=== PATIENT | female | born 1970 | race Two or more races ===

== ENCOUNTER 2020-07-11 10:03 | Emergency (ER) | payer OTHER ==
[2020-07-11 10:10] VITALS: BP 169/91; PULSE 91; TEMP 98.1; BMI 35.3
[2020-07-11] MEDS ORDERED: KETOROLAC TROMETHAMINE 30 MG/1 ML VIAL IM ONE (11:44)
[2020-07-11] MEDS ORDERED: KETOROLAC TROMETHAMINE 30 MG/1 ML VIAL ONE (11:53)
[2020-07-11 12:47] LABS: URIC ACID 3.7 mg/dL (2.6-7.2)
[2020-07-13 18:07] LABS: BABESIA MICROTI ANTIBODY IGG <1:10 (Neg:<1:10); BABESIA MICROTI ANTIBODY IGM <1:10 (Neg:<1:10)
[2020-07-15 15:10] LABS: E.chaff HME IgG Negative (Neg:<1:64)
== END 2020-07-11 13:22 | disposition home or self-care (01) ==
LOC: JER 10:03
PROC: 3E0233Z Introduction of Anti-inflammatory into Muscle, Percutaneous Approach (ICD-10-PCS; principal; 2020-07-11)
DX: M00.89 Polyarthritis due to other bacteria (principal)
CPT/HCPCS: 36415; 73130-TC-LT-FY; 73130-TC-RT-FY; 84550; 86140; 86431; 86618; 86666; 86753; 87491; 87591; 99284-25

== ENCOUNTER 2021-04-30 17:11 | Inpatient (IN) | payer OTHER ==
[2021-04-30] MEDS ORDERED: IBUPROFEN 600 MG TABLET (FP) PO ONE ×2 (17:47→17:49)
[2021-04-30] MEDS ORDERED: ACETAMINOPHEN 500 MG TABLET (FP) PO ONE (17:47)
[2021-04-30] MEDS ORDERED: ACETAMINOPHEN 500 MG TABLET (FP) ONE (17:49)
[2021-04-30] MEDS: ALBUTEROL SO4 2.5/IPRATROPIUM 0.5 INH SOL 3 ML VIAL.NEB. NEB SCH ×4 (18:15→19:16)
[2021-04-30] MEDS ORDERED: ALBUTEROL SO4 2.5/IPRATROPIUM 0.5 INH SOL 3 ML VIAL.NEB. NEB ONE (18:15)
[2021-04-30 19:29] LABS: BASO % 1.1 % (0-2.0); EOS % 4.4 % (0-4.5); HEMATOCRIT 39.4 % (32.4-45.2); MCH 27.7 pg (25.7-33.7); MEAN CELL VOLUME 83.8 fl (80-96); MEAN PLT VOLUME 9.8 fl (7.5-11.1); MONO % 6.9 % (3.8-10.2); NEUT % 57.6 % (42.8-82.8); PLATELET COUNT 284 10^3/uL (134-434); RDW 17.7 % (11.6-15.6); WHITE BLOOD COUNT 11.6 K/mm3 (4.0-10.0)
[2021-04-30 19:52] LABS: ALBUMIN 3.7 g/dl (3.4-5.0); BLOOD UREA NITROGEN 20.4 mg/dL (7-18); CALCIUM 9.1 mg/dL (8.5-10.1)
[2021-04-30 19:53] LABS: BILIRUBIN,DIRECT 0.1 mg/dL (0.0-0.2)
[2021-04-30 19:55] LABS: CREATININE 0.7 mg/dL (0.55-1.3)
[2021-04-30 19:57] LABS: BILIRUBIN,TOTAL 0.4 mg/dL (0.2-1); TOT PROT 8.4 g/dl (6.4-8.2)
[2021-04-30 20:00] LABS: N-TERMINAL BNP 62.4 pg/ml (5-125)
[2021-04-30] MEDS ORDERED: CEFTRIAXONE 1,000 MG in DEXTROSE 5%-WATER - 50 ML IVPB ONE (20:35)
[2021-04-30] MEDS ORDERED: AZITHROMYCIN IVPB 500 MG in DEXTROSE 5%-WATER - 250 ML IVPB ONE (20:36)
[2021-04-30] MEDS ORDERED: CEFTRIAXONE 1 GM/50 ML BAG ONE (20:52)
[2021-04-30] MEDS ORDERED: AZITHROMYCIN IVPB 500 MG/250 ML BAG IVPB ONE (20:52)
[2021-04-30] MEDS ORDERED: BUDESONIDE/FORMETEROL FUMARATE 80/4.5 mcg INHALER IH SCH (22:15)
[2021-04-30] MEDS ORDERED: ACETAMINOPHEN 325 MG TABLET (FP) PO SCH (22:15)
[2021-04-30 22:46] LABS: PH,URINE 5.5 (5.0-8.0); URINE APPEARANCE CLEAR; URINE BILIRUBIN NEGATIVE (NEGATIVE); URINE COLOR YELLOW; URINE GLUCOSE (UA) NEGATIVE (NEGATIVE); URINE KETONE NEGATIVE (NEGATIVE); URINE LEUK ESTERASE NEGATIVE (NEGATIVE); URINE NITRITE NEGATIVE (NEGATIVE); URINE PROTEIN NEGATIVE (NEGATIVE); URINE UROBILINOGEN 0.2 mg/dL (0.2-1.0)
[2021-04-30 23:45] VITALS: BMI 34.7
[2021-05-01] MEDS: ACETAMINOPHEN 325 MG TABLET (FP) PO PRN (03:52)
[2021-05-01] MEDS: ALBUTEROL SO4 2.5/IPRATROPIUM 0.5 INH SOL 3 ML VIAL.NEB. NEB SCH ×3 (07:42→19:42)
[2021-05-01 08:00] LABS: BASO % 0.7 % (0-2.0); EOS % 8.6 % (0-4.5); HEMATOCRIT 35.5 % (32.4-45.2); HEMOGLOBIN 11.7 GM/dL (10.7-15.3); LYMPH % 19.1 % (8-40); MCH 27.6 pg (25.7-33.7); MCHC 32.9 g/dl (32.0-36.0); MEAN CELL VOLUME 83.9 fl (80-96); MEAN PLT VOLUME 9.8 fl (7.5-11.1); MONO % 6.3 % (3.8-10.2); NEUT % 65.3 % (42.8-82.8); PLATELET COUNT 264 10^3/uL (134-434); RBC 4.23 M/mm3 (3.60-5.2); RDW 17.7 % (11.6-15.6)
[2021-05-01 08:28] LABS: BLOOD UREA NITROGEN 18.1 mg/dL (7-18)
[2021-05-01 08:30] LABS: CALCIUM 8.4 mg/dL (8.5-10.1)
[2021-05-01 08:34] LABS: CREATININE 0.5 mg/dL (0.55-1.3); PHOSPHOROUS 5.4 mg/dL (2.5-4.9)
[2021-05-01 08:35] LABS: BILIRUBIN,TOTAL 0.4 mg/dL (0.2-1); TOT PROT 7.3 g/dl (6.4-8.2)
[2021-05-01] MEDS ORDERED: cefTRIAXone SODIUM 1 GM VIAL ONE (08:40)
[2021-05-01] MEDS ORDERED: DEXTROSE 5%-WATER - 50 ML IVPB ONE (08:40)
[2021-05-01] MEDS: CEFTRIAXONE 1 GM in DEXTROSE 5%-WATER - 50 ML IVPB SCH (09:36)
[2021-05-01] MEDS: AZITHROMYCIN 250 MG TABLET PO SCH (09:36)
[2021-05-01] MEDS: ENOXAPARIN NA (PORCINE) 40 MG/0.4 ML DISP.SYRIN SQ SCH (09:36)
[2021-05-01] MEDS ORDERED: predniSONE 2.5 MG TABLET PO SCH (10:00)
[2021-05-01] MEDS: HYDROCHLOROTHIAZIDE 25 MG TABLET (FP) PO SCH (10:10)
[2021-05-01] MEDS: LISINOPRIL 20 MG TABLET PO SCH (10:10)
[2021-05-01] MEDS ORDERED: predniSONE 5 MG TABLET (UD) PO SCH ×2 (10:15)
[2021-05-01] MEDS: BUDESONIDE/FORMETEROL FUMARATE 80/4.5 mcg INHALER IH SCH ×2 (11:11→22:08)
[2021-05-01] MEDS: NAPROXEN 500 MG TABLET PO SCH ×2 (11:11→22:08)
[2021-05-01] MEDS: methylPREDNISolone NA SUCC 40 MG/1 ML VIAL IVPUSH SCH (17:27)
[2021-05-01] MEDS ORDERED: PT OWN MED DRAWER 7, Y5N ONE (18:46)
[2021-05-01] MEDS ORDERED: MONTELUKAST NA 5 MG TAB.CHEW PO SCH (22:00)
[2021-05-01] MEDS: MONTELUKAST NA 10 MG TABLET PO SCH (22:08)
[2021-05-02] MEDS: methylPREDNISolone NA SUCC 40 MG/1 ML VIAL IVPUSH SCH ×3 (03:00→18:24)
[2021-05-02 07:30] LABS: HEMATOCRIT 37.7 % (32.4-45.2); HEMOGLOBIN 12.6 GM/dL (10.7-15.3); MCH 27.6 pg (25.7-33.7); MCHC 33.3 g/dl (32.0-36.0); MEAN PLT VOLUME 9.8 fl (7.5-11.1); PLATELET COUNT 302 10^3/uL (134-434); RBC 4.55 M/mm3 (3.60-5.2); RDW 17.9 % (11.6-15.6); WHITE BLOOD COUNT 8.9 K/mm3 (4.0-10.0)
[2021-05-02] MEDS: ALBUTEROL SO4 2.5/IPRATROPIUM 0.5 INH SOL 3 ML VIAL.NEB. NEB SCH ×3 (07:36→19:56)
[2021-05-02 07:50] LABS: CALCIUM 8.9 mg/dL (8.5-10.1)
[2021-05-02 07:51] LABS: ALBUMIN 3.4 g/dl (3.4-5.0); BLOOD UREA NITROGEN 18.1 mg/dL (7-18)
[2021-05-02 07:54] LABS: BILIRUBIN,TOTAL 0.4 mg/dL (0.2-1); CREATININE 0.6 mg/dL (0.55-1.3)
[2021-05-02] MEDS ORDERED: cefTRIAXone SODIUM 1 GM VIAL ONE (09:23)
[2021-05-02] MEDS ORDERED: DEXTROSE 5%-WATER - 50 ML IVPB ONE (09:23)
[2021-05-02] MEDS ORDERED: PT OWN MED DRAWER 7, Y5N ONE (09:23)
[2021-05-02] MEDS: AZITHROMYCIN 250 MG TABLET PO SCH (09:32)
[2021-05-02] MEDS: NAPROXEN 500 MG TABLET PO SCH ×2 (09:32→22:38)
[2021-05-02] MEDS: LISINOPRIL 20 MG TABLET PO SCH (09:32)
[2021-05-02] MEDS: ENOXAPARIN NA (PORCINE) 40 MG/0.4 ML DISP.SYRIN SQ SCH (09:32)
[2021-05-02] MEDS: HYDROCHLOROTHIAZIDE 25 MG TABLET (FP) PO SCH (09:32)
[2021-05-02] MEDS: CEFTRIAXONE 1 GM in DEXTROSE 5%-WATER - 50 ML IVPB SCH (09:33)
[2021-05-02] MEDS: BUDESONIDE/FORMETEROL FUMARATE 80/4.5 mcg INHALER IH SCH ×2 (09:33→21:42)
[2021-05-02] MEDS: MONTELUKAST NA 10 MG TABLET PO SCH (21:30)
[2021-05-03] MEDS: methylPREDNISolone NA SUCC 40 MG/1 ML VIAL IVPUSH SCH ×2 (01:44→10:54)
[2021-05-03] MEDS: ALBUTEROL SO4 2.5/IPRATROPIUM 0.5 INH SOL 3 ML VIAL.NEB. NEB SCH ×2 (07:50→14:45)
[2021-05-03 08:19] LABS: HEMATOCRIT 36.5 % (32.4-45.2); HEMOGLOBIN 12.1 GM/dL (10.7-15.3); MCHC 33.2 g/dl (32.0-36.0); MEAN CELL VOLUME 84.1 fl (80-96); PLATELET COUNT 305 10^3/uL (134-434); RBC 4.33 M/mm3 (3.60-5.2); RDW 17.7 % (11.6-15.6); WHITE BLOOD COUNT 15.3 K/mm3 (4.0-10.0)
[2021-05-03 08:45] LABS: ALBUMIN 3.2 g/dl (3.4-5.0); BLOOD UREA NITROGEN 24.8 mg/dL (7-18); CALCIUM 8.8 mg/dL (8.5-10.1)
[2021-05-03 08:48] LABS: CREATININE 0.6 mg/dL (0.55-1.3)
[2021-05-03 08:49] LABS: BILIRUBIN,TOTAL 0.4 mg/dL (0.2-1); TOT PROT 7.7 g/dl (6.4-8.2)
[2021-05-03] MEDS ORDERED: cefTRIAXone SODIUM 1 GM VIAL ONE (10:51)
[2021-05-03] MEDS ORDERED: PT OWN MED DRAWER 7, Y5N ONE (10:51)
[2021-05-03] MEDS ORDERED: DEXTROSE 5%-WATER - 50 ML IVPB ONE (10:51)
[2021-05-03] MEDS: HYDROCHLOROTHIAZIDE 25 MG TABLET (FP) PO SCH (10:52)
[2021-05-03] MEDS: AZITHROMYCIN 250 MG TABLET PO SCH (10:53)
[2021-05-03] MEDS: NAPROXEN 500 MG TABLET PO SCH (10:53)
[2021-05-03] MEDS: LISINOPRIL 20 MG TABLET PO SCH (10:53)
[2021-05-03] MEDS: ENOXAPARIN NA (PORCINE) 40 MG/0.4 ML DISP.SYRIN SQ SCH (10:53)
[2021-05-03] MEDS: CEFTRIAXONE 1 GM in DEXTROSE 5%-WATER - 50 ML IVPB SCH (10:53)
[2021-05-03] MEDS: BUDESONIDE/FORMETEROL FUMARATE 80/4.5 mcg INHALER IH SCH (10:55)
[2021-05-03] MEDS: ACETAMINOPHEN 325 MG TABLET (FP) PO PRN (10:55)
[2021-05-03 13:15] VITALS: BP 144/79; PULSE 104; TEMP 97.7
== END 2021-05-03 18:46 | disposition home or self-care (01) | DRG 139 ==
LOC: JER 17:11 → JERBED 21:06 → J8W 22:53
PROVIDERS: ADMIT Internal Medicine; ATTEND Internal Medicine
DX: J18.9 Pneumonia, unspecified organism (principal); M05.10 Rheumatoid lung disease with rheumatoid arthritis of unspecified site; J45.901 Unspecified asthma with (acute) exacerbation; I10 Essential (primary) hypertension; J02.9 Acute pharyngitis, unspecified; D72.829 Elevated white blood cell count, unspecified; E66.9 Obesity, unspecified; Z68.34 Body mass index [BMI] 34.0-34.9, adult; R09.02 Hypoxemia; I51.7 Cardiomegaly
CPT/HCPCS: 36415; 71046-TC-FY; 71250-TC; 71275-TC; 80053; 81003; 82248; 82550; 82728; 83036; 83615; 83735; 83880; 84100; 84484; 85025; 85027; 85379; 86140; 87040; 87070; 87205; 87880; 87899; 93005; 93010; 93970-TC; 94640; 97116-GP; 97161-GP; 99285-25; C9803; Q9967; U0003; U0005

== ENCOUNTER 2021-09-27 07:41 | Day surgery (SDC) | payer OTHER ==
[2021-09-27] MEDS ORDERED: diphenhydrAMINE HCL 25 MG CAPSULE (FP) PO ONE (08:30)
[2021-09-27] MEDS ORDERED: methylPREDNISolone NA SUCC 125 MG/2 ML VIAL IVPUSH ONE (08:30)
[2021-09-27] MEDS ORDERED: ACETAMINOPHEN 500 MG TABLET (FP) PO ONE (08:30)
[2021-09-27] MEDS ORDERED: RITUXIMAB-ABBS 1,000 MG in DEXTROSE 5%-WATER - 400 ML IVPB ONE (09:00)
[2021-09-27 09:03] LABS: BASO % 0.5 % (0-2.0); EOS % 1.6 % (0-4.5); HEMATOCRIT 41.1 % (32.4-45.2); HEMOGLOBIN 13.1 GM/dL (10.7-15.3); LYMPH % 12.2 % (8-40); MCH 26.1 pg (25.7-33.7); MCHC 31.8 g/dl (32.0-36.0); MEAN CELL VOLUME 82.1 fl (80-96); MEAN PLT VOLUME 10.1 fl (7.5-11.1); MONO % 2.5 % (3.8-10.2); NEUT % 83.2 % (42.8-82.8); PLATELET COUNT 244 10^3/uL (134-434); RBC 5.01 M/mm3 (3.60-5.2); RDW 16.9 % (11.6-15.6)
[2021-09-27 09:17] LABS: ALBUMIN 3.4 g/dl (3.4-5.0); BLOOD UREA NITROGEN 20.1 mg/dL (7-18)
[2021-09-27 09:20] LABS: CREATININE 0.9 mg/dL (0.55-1.3)
[2021-09-27 09:21] LABS: BILIRUBIN,TOTAL 0.4 mg/dL (0.2-1); TOT PROT 7.5 g/dl (6.4-8.2)
[2021-09-27 17:43] VITALS: PULSE 85
[2021-09-27 17:57] VITALS: BP 137/77; TEMP 98
== END 2021-09-27 14:45 | disposition home or self-care (01) ==
LOC: JCHEMO 07:41
PROVIDERS: ATTEND Internal Medicine Rheumatology
DX: M06.9 Rheumatoid arthritis, unspecified (principal); J84.9 Interstitial pulmonary disease, unspecified
CPT/HCPCS: 36415; 80053; 85025; 96375; 96413; 96415; Q5115

== ENCOUNTER 2021-10-11 08:10 | Day surgery (SDC) | payer OTHER ==
[2021-10-11] MEDS ORDERED: ACETAMINOPHEN 500 MG TABLET (FP) PO ONE (10:00)
[2021-10-11] MEDS ORDERED: methylPREDNISolone NA SUCC 125 MG/2 ML VIAL IVPUSH ONE (10:00)
[2021-10-11] MEDS ORDERED: diphenhydrAMINE HCL 25 MG CAPSULE (FP) PO ONE (10:00)
[2021-10-11] MEDS ORDERED: RITUXIMAB-ABBS 1,000 MG in DEXTROSE 5%-WATER - 400 ML IVPB ONE (10:30)
[2021-10-11 16:51] VITALS: TEMP 98.2
[2021-10-11 16:57] VITALS: BP 102/60; PULSE 94
== END 2021-10-11 14:45 | disposition home or self-care (01) ==
LOC: JINFUSION 08:10 → J7W 08:11 → JINFUSION 14:45
PROVIDERS: ATTEND Internal Medicine Rheumatology
DX: M06.9 Rheumatoid arthritis, unspecified (principal); J84.9 Interstitial pulmonary disease, unspecified
CPT/HCPCS: 96367; 96413; 96415; Q5115

== ENCOUNTER 2021-10-14 09:31 | Inpatient (IN) | payer OTHER ==
[2021-10-14] MEDS ORDERED: SODIUM CHLORIDE 1,000 ML IV STA (10:54)
[2021-10-14 11:13] LABS: HEMATOCRIT 41.6 % (32.4-45.2); HEMOGLOBIN 13.8 GM/dL (10.7-15.3); MCH 27.4 pg (25.7-33.7); MCHC 33.1 g/dl (32.0-36.0); MEAN CELL VOLUME 82.7 fl (80-96); MEAN PLT VOLUME 9.7 fl (7.5-11.1); PLATELET COUNT 236 10^3/uL (134-434); RBC 5.03 M/mm3 (3.60-5.2); WHITE BLOOD COUNT 9.9 K/mm3 (4.0-10.0)
[2021-10-14 11:33] LABS: CHLORIDE 104 mmol/L (98-107); SODIUM 138 mmol/L (136-145)
[2021-10-14 11:35] LABS: CALCIUM 9.4 mg/dL (8.5-10.1)
[2021-10-14 11:36] LABS: ALBUMIN 3.6 g/dl (3.4-5.0); ANION GAP 6 MMOL/L (8-16); CO2 29 mmol/L (21-32); GLUCOSE,RANDOM 164 mg/dL (74-106)
[2021-10-14 11:39] LABS: CREATININE 0.7 mg/dL (0.55-1.3); SGOT/AST 32 U/L (15-37); SGPT/ALT 20 U/L (13-61)
[2021-10-14 11:40] LABS: BILIRUBIN,TOTAL 0.4 mg/dL (0.2-1); TOT PROT 7.8 g/dl (6.4-8.2)
[2021-10-14 11:42] LABS: ALK PHOS 33 U/L (45-117)
[2021-10-14 12:54] LABS: ANISOCYTOSIS 0; MACROCYTOSIS 0; PLATELET ESTIMATE NORMAL
[2021-10-14] MEDS ORDERED: CEFTRIAXONE 1 GM in DEXTROSE 5%-WATER - 50 ML IVPB ONE (13:37)
[2021-10-14] MEDS ORDERED: AZITHROMYCIN IVPB 500 MG in DEXTROSE 5%-WATER - 250 ML IVPB ONE (13:39)
[2021-10-14] MEDS ORDERED: CEFTRIAXONE 1 GM/50 ML BAG ONE (13:55)
[2021-10-14] MEDS ORDERED: AZITHROMYCIN IVPB 500 MG/250 ML BAG IVPB ONE (13:56)
[2021-10-14] MEDS ORDERED: methylPREDNISolone NA SUCC 40 MG/1 ML VIAL IVPUSH SCH (16:43)
[2021-10-14] MEDS ORDERED: ALBUTEROL SO4 HFA INHALER IH PRN (16:44)
[2021-10-14] MEDS ORDERED: SULFASALAZINE 500 MG PO SCH (22:00)
[2021-10-14] MEDS: BUDESONIDE/FORMETEROL FUMARATE 80/4.5 mcg INHALER IH SCH (22:27)
[2021-10-14 23:47] VITALS: BMI 36.1
[2021-10-15] MEDS ORDERED: NAPROXEN 500 MG TABLET PO ONE (06:14)
[2021-10-15 08:54] LABS: BASO % 0.7 % (0-2.0); EOS % 10.8 % (0-4.5); HEMOGLOBIN 12.5 GM/dL (10.7-15.3); LYMPH % 21.1 % (8-40); MCH 27.4 pg (25.7-33.7); MEAN PLT VOLUME 9.3 fl (7.5-11.1); MONO % 6.7 % (3.8-10.2); NEUT % 60.7 % (42.8-82.8); PLATELET COUNT 189 10^3/uL (134-434); RBC 4.57 M/mm3 (3.60-5.2); RDW 16.7 % (11.6-15.6); WHITE BLOOD COUNT 7.7 K/mm3 (4.0-10.0)
[2021-10-15 09:21] LABS: BLOOD UREA NITROGEN 10.8 mg/dL (7-18); CALCIUM 8.6 mg/dL (8.5-10.1)
[2021-10-15 09:25] LABS: CREATININE 0.6 mg/dL (0.55-1.3)
[2021-10-15] MEDS: LISINOPRIL 20 MG TABLET PO SCH (09:42)
[2021-10-15] MEDS: HYDROCHLOROTHIAZIDE 25 MG TABLET (FP) PO SCH (09:42)
[2021-10-15] MEDS: BUDESONIDE/FORMETEROL FUMARATE 80/4.5 mcg INHALER IH SCH ×2 (09:43→21:14)
[2021-10-15] MEDS: ENOXAPARIN NA (PORCINE) 40 MG/0.4 ML DISP.SYRIN SQ SCH (09:44)
[2021-10-15] MEDS ORDERED: PATIENT'S OWN MEDICATION (NON-FORMULARY) (Lisinopril/Hydrochlorothiazide [Lisinopril-Hctz PO SCH (10:00)
[2021-10-15] MEDS ORDERED: methylPREDNISolone NA SUCC 40 MG/1 ML VIAL IVPUSH SCH (10:00)
[2021-10-15] MEDS: SULFAMETHOXAZOLE/TRIMETHOPRIM 400MG/80MG S.S. TABLET PO SCH (15:33)
[2021-10-15] MEDS: methylPREDNISolone NA SUCC 40 MG/1 ML VIAL IVPUSH SCH ×2 (15:37→21:13)
[2021-10-16] MEDS: methylPREDNISolone NA SUCC 40 MG/1 ML VIAL IVPUSH SCH ×3 (02:10→17:42)
[2021-10-16] MEDS: ENOXAPARIN NA (PORCINE) 40 MG/0.4 ML DISP.SYRIN SQ SCH (09:56)
[2021-10-16] MEDS: LISINOPRIL 20 MG TABLET PO SCH (09:57)
[2021-10-16] MEDS: HYDROCHLOROTHIAZIDE 25 MG TABLET (FP) PO SCH (09:57)
[2021-10-16] MEDS: BUDESONIDE/FORMETEROL FUMARATE 80/4.5 mcg INHALER IH SCH ×2 (10:08→21:18)
[2021-10-16] MEDS: SULFAMETHOXAZOLE/TRIMETHOPRIM 400MG/80MG S.S. TABLET PO SCH (11:33)
[2021-10-16] MEDS ORDERED: ACETAMINOPHEN 325 MG TABLET (FP) PO PRN (11:54)
[2021-10-16] MEDS ORDERED: cefTRIAXone SODIUM 1 GM VIAL ONE (15:32)
[2021-10-16] MEDS ORDERED: DEXTROSE 5%-WATER - 50 ML IVPB ONE (15:32)
[2021-10-16] MEDS: CEFTRIAXONE 1 GM in DEXTROSE 5%-WATER - 50 ML IVPB SCH (15:34)
[2021-10-16] MEDS: FAMOTIDINE 20 MG TABLET PO SCH (21:15)
[2021-10-17] MEDS: methylPREDNISolone NA SUCC 40 MG/1 ML VIAL IVPUSH SCH ×2 (02:00→09:48)
[2021-10-17] MEDS ORDERED: cefTRIAXone SODIUM 1 GM VIAL ONE (09:10)
[2021-10-17] MEDS ORDERED: DEXTROSE 5%-WATER - 50 ML IVPB ONE (09:11)
[2021-10-17] MEDS: LISINOPRIL 20 MG TABLET PO SCH (09:48)
[2021-10-17] MEDS: ENOXAPARIN NA (PORCINE) 40 MG/0.4 ML DISP.SYRIN SQ SCH (09:48)
[2021-10-17] MEDS: CEFTRIAXONE 1 GM in DEXTROSE 5%-WATER - 50 ML IVPB SCH (09:48)
[2021-10-17] MEDS: HYDROCHLOROTHIAZIDE 25 MG TABLET (FP) PO SCH (09:48)
[2021-10-17] MEDS: FAMOTIDINE 20 MG TABLET PO SCH (09:48)
[2021-10-17] MEDS: SULFAMETHOXAZOLE/TRIMETHOPRIM 400MG/80MG S.S. TABLET PO SCH (09:50)
[2021-10-17] MEDS: BUDESONIDE/FORMETEROL FUMARATE 80/4.5 mcg INHALER IH SCH (09:50)
[2021-10-17] MEDS ORDERED: methylPREDNISolone NA SUCC 1000 MG/8 ML VIAL IVPUSH SCH (10:00)
[2021-10-17] MEDS ORDERED: CHOLECALCIFEROL (VIT D3) 5000 UNITS (125 MCG) CAP PO SCH (10:00)
[2021-10-17 15:56] VITALS: BP 130/58; PULSE 100; TEMP 97.8
== END 2021-10-17 18:06 | disposition home or self-care (01) | DRG 142 ==
LOC: JER 09:31 → JERBED 13:54 → J8W 20:17
PROVIDERS: ADMIT Internal Medicine
DX: J84.9 Interstitial pulmonary disease, unspecified (principal); I27.20 Pulmonary hypertension, unspecified; I10 Essential (primary) hypertension; E66.01 Morbid (severe) obesity due to excess calories; J45.909 Unspecified asthma, uncomplicated; M06.9 Rheumatoid arthritis, unspecified; J98.11 Atelectasis; Z68.36 Body mass index [BMI] 36.0-36.9, adult
CPT/HCPCS: 36415; 71046-TC-FY; 71275-TC; 80048; 80053; 82550; 82962; 83036; 83880; 84484; 85025; 87804; 87807; 93005; 93010; 99285-25; C9803; Q9967; U0003; U0005

== ENCOUNTER 2022-01-06 20:25 | Observation (INO) | payer OTHER ==
[2022-01-06] MEDS ORDERED: LACTATED RINGERS SOLUTION 1000 ML INFUS.BAG IV ONE (21:30)
[2022-01-06] MEDS ORDERED: ACETAMINOPHEN 1000 MG/100 ML BAG IVPB ONE (21:30)
[2022-01-06] MEDS ORDERED: ACETAMINOPHEN INJECTION 100 ML IVPB ONE (22:01)
[2022-01-06 22:26] LABS: EPI CELLS 10 /uL (0-25.1); HYALINE CASTS 1 /uL (0-3.1); URINE APPEARANCE CLEAR; URINE BACTERIA 54 /uL (0-1359); URINE BILIRUBIN NEGATIVE (NEGATIVE); URINE COLOR YELLOW; URINE GLUCOSE (UA) NEGATIVE (NEGATIVE); URINE KETONE NEGATIVE (NEGATIVE); URINE LEUK ESTERASE 1+ (NEGATIVE); URINE NITRITE NEGATIVE (NEGATIVE); URINE PROTEIN NEGATIVE (NEGATIVE); URINE RBC 4128 /uL (0-23.9); URINE UROBILINOGEN 0.2 mg/dL (0.2-1.0); URINE WBC 47 /uL (0-25.8)
[2022-01-06 22:37] LABS: BASO % 0.3 % (0-2.0); EOS % 5.4 % (0-4.5); HEMATOCRIT 35.3 % (32.4-45.2); HEMOGLOBIN 11.6 GM/dL (10.7-15.3); LYMPH % 6.8 % (8-40); MCH 27.5 pg (25.7-33.7); MCHC 32.8 g/dl (32.0-36.0); MEAN CELL VOLUME 83.8 fl (80-96); MEAN PLT VOLUME 10.1 fl (7.5-11.1); MONO % 3.9 % (3.8-10.2); NEUT % 83.6 % (42.8-82.8); PLATELET COUNT 247 10^3/uL (134-434); RBC 4.22 M/mm3 (3.60-5.2); RDW 16.1 % (11.6-15.6); WHITE BLOOD COUNT 11.2 K/mm3 (4.0-10.0)
[2022-01-06 22:59] LABS: ALBUMIN 3.3 g/dl (3.4-5.0); CALCIUM 8.7 mg/dL (8.5-10.1)
[2022-01-06 23:02] LABS: CREATININE 0.8 mg/dL (0.55-1.3)
[2022-01-06 23:04] LABS: BILIRUBIN,TOTAL 0.2 mg/dL (0.2-1); TOT PROT 7.1 g/dl (6.4-8.2)
[2022-01-07] MEDS ORDERED: ACETAMINOPHEN INJECTION 100 ML IVPB ONE (03:45)
[2022-01-07] MEDS ORDERED: morphine CARPU-JECT 4 MG/1 ML DISP.SYRIN IVPUSH ONE (04:26)
[2022-01-07] MEDS ORDERED: morphine SULFATE 4 MG/ML VIAL ONE (04:31)
[2022-01-07 08:55] VITALS: BMI 36.4
[2022-01-07] MEDS ORDERED: ACETAMINOPHEN 325 MG TABLET (FP) PO PRN (09:00)
[2022-01-07] MEDS ORDERED: oxyCODONE HCL 5 MG TABLET PO PRN (09:00)
[2022-01-07] MEDS ORDERED: predniSONE 10 MG TABLET (UD) PO SCH ×2 (10:00)
[2022-01-07] MEDS ORDERED: PATIENT'S OWN MEDICATION (NON-FORMULARY) (Lisinopril/Hydrochlorothiazide [Lisinopril-Hctz PO SCH (10:00)
[2022-01-07] MEDS ORDERED: HYDROCHLOROTHIAZIDE 25 MG TABLET (FP) PO SCH (10:00)
[2022-01-07] MEDS ORDERED: LISINOPRIL 20 MG TABLET PO SCH (10:00)
[2022-01-07] MEDS ORDERED: BENZONATATE 200 MG PO PRN (11:39)
[2022-01-07] MEDS ORDERED: ALBUTEROL SO4 HFA INHALER IH PRN ×2 (11:39→12:10)
[2022-01-07] MEDS ORDERED: NAPROXEN 500 MG TABLET PO PRN (11:39)
[2022-01-07 18:11] VITALS: TEMP 98.2
[2022-01-08 01:01] VITALS: BP 139/77; PULSE 84
[2022-01-08] MEDS ORDERED: predniSONE 20 MG TABLET (UD) PO SCH (10:00)
[2022-01-08] MEDS ORDERED: SULFAMETHOXAZOLE/TRIMETHOPRIM 400MG/80MG S.S. TABLET PO SCH (10:00)
== END 2022-01-08 00:40 | disposition short-term general hospital (02) ==
LOC: JER 20:25 → JERBED 01-07 03:21 → UNDOADMOB 01-07 03:21 → INTOOBSV 01-07 03:21 → JERBED 01-07 05:07 → J5S 01-07 06:32
PROVIDERS: ADMIT Hospitalist; ATTEND Internal Medicine
PROC: 3E033NZ Introduction of Analgesics, Hypnotics, Sedatives into Peripheral Vein, Percutaneous Approach (ICD-10-PCS; principal; 2022-01-07)
PROC: 3E0337Z Introduction of Electrolytic and Water Balance Substance into Peripheral Vein, Percutaneous Approach (ICD-10-PCS; 2022-01-07)
PROC: 3E033NZ Introduction of Analgesics, Hypnotics, Sedatives into Peripheral Vein, Percutaneous Approach (ICD-10-PCS; 2022-01-07)
DX: N83.209 Unspecified ovarian cyst, unspecified side (principal); J84.9 Interstitial pulmonary disease, unspecified; M06.9 Rheumatoid arthritis, unspecified; Z87.891 Personal history of nicotine dependence; J45.909 Unspecified asthma, uncomplicated; K59.00 Constipation, unspecified; E66.8 Other obesity; Z68.36 Body mass index [BMI] 36.0-36.9, adult; N95.0 Postmenopausal bleeding; R19.00 Intra-abdominal and pelvic swelling, mass and lump, unspecified site; J45.901 Unspecified asthma with (acute) exacerbation; I10 Essential (primary) hypertension
CPT/HCPCS: 36415; 71045-TC-FY; 71260-TC; 74177-TC; 76705-TC; 76830-TC; 80053; 81003; 83690; 84484; 85025; 87077; 87086; 87186; 93005; 93010; 96374; 96375; 99285-25; C9803-CS; G0378; Q9967; U0003; U0005

== ENCOUNTER 2022-01-15 09:09 | Inpatient (IN) | payer OTHER ==
[2022-01-15] MEDS ORDERED: DEXAMETHASONE SOD PHOSPHATE 10 MG/1 ML VIAL IVPUSH ONE (09:44)
[2022-01-15] MEDS ORDERED: ACETAMINOPHEN 1000 MG/100 ML BAG IVPB ONE (09:47)
[2022-01-15] MEDS ORDERED: ALBUTEROL SO4 2.5/IPRATROPIUM 0.5 INH SOL 3 ML VIAL.NEB. NEB ONE ×2 (09:47→09:59)
[2022-01-15] MEDS ORDERED: BENZOCAINE/MENTHOL 1 EACH LOZENGE MM ONE (09:50)
[2022-01-15] MEDS ORDERED: DEXAMETHASONE SOD PHOSPHATE 10 MG/1 ML VIAL ONE (09:59)
[2022-01-15] MEDS ORDERED: ACETAMINOPHEN INJECTION 100 ML IVPB ONE (10:00)
[2022-01-15 11:11] LABS: BASO % 0.6 % (0-2.0); EOS % 5.6 % (0-4.5); HEMATOCRIT 38.4 % (32.4-45.2); HEMOGLOBIN 12.7 GM/dL (10.7-15.3); LYMPH % 13.3 % (8-40); MCH 27.4 pg (25.7-33.7); MEAN CELL VOLUME 83.2 fl (80-96); MEAN PLT VOLUME 9.5 fl (7.5-11.1); NEUT % 74.5 % (42.8-82.8); PLATELET COUNT 282 10^3/uL (134-434); RBC 4.62 M/mm3 (3.60-5.2); RDW 15.3 % (11.6-15.6); WHITE BLOOD COUNT 7.9 K/mm3 (4.0-10.0)
[2022-01-15 11:15] LABS: VENOUS BASE EXCESS 1.2 mmol/L (-2-2); VENOUS O2 SATURATION 86.1 % (70-80); VENOUS PCO2 48.6 mmHg (38-52); VENOUS PH 7.366 (7.310-7.410)
[2022-01-15 11:30] LABS: CALCIUM 9.3 mg/dL (8.5-10.1)
[2022-01-15 11:31] LABS: ALBUMIN 3.4 g/dl (3.4-5.0); BLOOD UREA NITROGEN 12.9 mg/dL (7-18)
[2022-01-15 11:34] LABS: CREATININE 0.7 mg/dL (0.55-1.3)
[2022-01-15 11:35] LABS: BILIRUBIN,TOTAL 0.3 mg/dL (0.2-1); TOT PROT 7.8 g/dl (6.4-8.2)
[2022-01-15] MEDS ORDERED: ALBUTEROL SO4 2.5/IPRATROPIUM 0.5 INH SOL 3 ML VIAL.NEB. NEB PRN (14:19)
[2022-01-15] MEDS ORDERED: guaiFENesin 200 MG/10 ML 10 ML UNIT-DOSE CUPS PO PRN (14:21)
[2022-01-15] MEDS ORDERED: ACETAMINOPHEN 325 MG TABLET (FP) PO PRN (14:22)
[2022-01-15] MEDS ORDERED: REMDESIVIR 200 MG in SODIUM CHLORIDE 250 ML IVPB ONE ×2 (15:27→16:00)
[2022-01-15] MEDS ORDERED: FAMOTIDINE 20 MG TABLET ONE (22:08)
[2022-01-15] MEDS: FAMOTIDINE 20 MG TABLET PO SCH (22:11)
[2022-01-16 08:33] LABS: BASO % 0.5 % (0-2.0); EOS % 1.6 % (0-4.5); HEMATOCRIT 35.4 % (32.4-45.2); HEMOGLOBIN 11.9 GM/dL (10.7-15.3); LYMPH % 21.2 % (8-40); MCH 27.9 pg (25.7-33.7); MCHC 33.6 g/dl (32.0-36.0); MEAN PLT VOLUME 9.5 fl (7.5-11.1); MONO % 10.3 % (3.8-10.2); NEUT % 66.4 % (42.8-82.8); PLATELET COUNT 262 10^3/uL (134-434); RBC 4.26 M/mm3 (3.60-5.2); RDW 15.5 % (11.6-15.6); WHITE BLOOD COUNT 7.8 K/mm3 (4.0-10.0)
[2022-01-16 09:10] LABS: CALCIUM 8.8 mg/dL (8.5-10.1)
[2022-01-16 09:11] LABS: ALBUMIN 3.1 g/dl (3.4-5.0); BLOOD UREA NITROGEN 15.7 mg/dL (7-18)
[2022-01-16 09:15] LABS: BILIRUBIN,TOTAL 0.5 mg/dL (0.2-1)
[2022-01-16 09:18] LABS: CREATININE 0.5 mg/dL (0.55-1.3)
[2022-01-16] MEDS ORDERED: DEXAMETHASONE 4 MG TABLET (FP) PO SCH (10:00)
[2022-01-16] MEDS ORDERED: PATIENT'S OWN MEDICATION (NON-FORMULARY) (Lisinopril/Hydrochlorothiazide [Lisinopril-Hctz PO SCH (10:00)
[2022-01-16] MEDS ORDERED: FAMOTIDINE 20 MG TABLET ONE (11:18)
[2022-01-16] MEDS ORDERED: DEXAMETHASONE 4 MG TABLET (FP) ONE (11:18)
[2022-01-16] MEDS ORDERED: HYDROCHLOROTHIAZIDE 25 MG TABLET (FP) ONE (11:18)
[2022-01-16] MEDS ORDERED: LISINOPRIL 20 MG TABLET ONE (11:18)
[2022-01-16] MEDS: FAMOTIDINE 20 MG TABLET PO SCH (11:29)
[2022-01-16] MEDS: HYDROCHLOROTHIAZIDE 25 MG TABLET (FP) PO SCH (11:29)
[2022-01-16] MEDS: LISINOPRIL 20 MG TABLET PO SCH (11:29)
[2022-01-16] MEDS ORDERED: AZITHROMYCIN IVPB 500 MG/250 ML BAG IVPB ONE ×2 (12:30→13:33)
[2022-01-16] MEDS: REMDESIVIR 100 MG in SODIUM CHLORIDE 250 ML IVPB SCH (16:50)
[2022-01-16] MEDS: ALBUTEROL SO4 HFA INHALER IH SCH ×2 (16:50→18:30)
[2022-01-16] MEDS ORDERED: ALBUTEROL SO4 HFA INHALER IH ONE (17:31)
[2022-01-17] MEDS: BUDESONIDE/FORMETEROL FUMARATE 160/4.5 mcg INHALER IH SCH ×3 (00:12→21:15)
[2022-01-17] MEDS: FAMOTIDINE 20 MG TABLET PO SCH ×3 (00:12→21:15)
[2022-01-17] MEDS: ALBUTEROL SO4 HFA INHALER IH SCH ×6 (02:27→21:15)
[2022-01-17 04:09] VITALS: BMI 30.2
[2022-01-17 08:57] LABS: BASO % 0.4 % (0-2.0); EOS % 1.3 % (0-4.5); HEMOGLOBIN 12.5 GM/dL (10.7-15.3); LYMPH % 32.4 % (8-40); MCHC 32.2 g/dl (32.0-36.0); MEAN CELL VOLUME 83.9 fl (80-96); MEAN PLT VOLUME 9.7 fl (7.5-11.1); NEUT % 55.9 % (42.8-82.8); PLATELET COUNT 294 10^3/uL (134-434); RBC 4.65 M/mm3 (3.60-5.2); RDW 15.6 % (11.6-15.6); WHITE BLOOD COUNT 7.1 K/mm3 (4.0-10.0)
[2022-01-17 09:32] LABS: PHOSPHOROUS 4.5 mg/dL (2.5-4.9)
[2022-01-17 09:34] LABS: BILIRUBIN,TOTAL 0.2 mg/dL (0.2-1); TOT PROT 7.6 g/dl (6.4-8.2)
[2022-01-17 09:38] LABS: CALCIUM 9.1 mg/dL (8.5-10.1)
[2022-01-17 09:39] LABS: ALBUMIN 3.4 g/dl (3.4-5.0); BLOOD UREA NITROGEN 17.9 mg/dL (7-18); MAGNESIUM 2.2 mg/dL (1.8-2.4)
[2022-01-17 09:42] LABS: CREATININE 0.6 mg/dL (0.55-1.3)
[2022-01-17] MEDS: DEXAMETHASONE SOD PHOSPHATE 10 MG/1 ML VIAL IVPUSH SCH (10:05)
[2022-01-17] MEDS: LISINOPRIL 20 MG TABLET PO SCH (10:05)
[2022-01-17] MEDS: HYDROCHLOROTHIAZIDE 25 MG TABLET (FP) PO SCH (10:05)
[2022-01-17] MEDS: REMDESIVIR 100 MG in SODIUM CHLORIDE 250 ML IVPB SCH (16:37)
[2022-01-18 09:05] LABS: BASO % 0.6 % (0-2.0); EOS % 2.6 % (0-4.5); HEMATOCRIT 38.6 % (32.4-45.2); HEMOGLOBIN 12.5 GM/dL (10.7-15.3); LYMPH % 29.2 % (8-40); MCHC 32.4 g/dl (32.0-36.0); MEAN CELL VOLUME 83.4 fl (80-96); MEAN PLT VOLUME 9.5 fl (7.5-11.1); MONO % 8.3 % (3.8-10.2); NEUT % 59.3 % (42.8-82.8); PLATELET COUNT 292 10^3/uL (134-434); RBC 4.62 M/mm3 (3.60-5.2); RDW 15.6 % (11.6-15.6); WHITE BLOOD COUNT 7.8 K/mm3 (4.0-10.0)
[2022-01-18 09:54] LABS: CALCIUM 9.3 mg/dL (8.5-10.1)
[2022-01-18 09:55] LABS: ALBUMIN 3.4 g/dl (3.4-5.0)
[2022-01-18 09:58] LABS: CREATININE 0.7 mg/dL (0.55-1.3); PHOSPHOROUS 5.1 mg/dL (2.5-4.9)
[2022-01-18 09:59] LABS: BILIRUBIN,TOTAL 0.9 mg/dL (0.2-1); TOT PROT 7.6 g/dl (6.4-8.2)
[2022-01-18] MEDS: DEXAMETHASONE SOD PHOSPHATE 10 MG/1 ML VIAL IVPUSH SCH (10:58)
[2022-01-18] MEDS: FAMOTIDINE 20 MG TABLET PO SCH ×2 (10:58→22:34)
[2022-01-18] MEDS: LISINOPRIL 20 MG TABLET PO SCH (10:58)
[2022-01-18] MEDS: HYDROCHLOROTHIAZIDE 25 MG TABLET (FP) PO SCH (10:58)
[2022-01-18] MEDS: ENOXAPARIN NA (PORCINE) 40 MG/0.4 ML DISP.SYRIN SQ SCH (10:59)
[2022-01-18] MEDS: ALBUTEROL SO4 HFA INHALER IH SCH ×4 (11:00→22:34)
[2022-01-18] MEDS: BUDESONIDE/FORMETEROL FUMARATE 160/4.5 mcg INHALER IH SCH ×2 (11:00→22:34)
[2022-01-18] MEDS: REMDESIVIR 100 MG in SODIUM CHLORIDE 250 ML IVPB SCH (16:01)
[2022-01-19 09:36] LABS: BASO % 0.5 % (0-2.0); EOS % 2.1 % (0-4.5); HEMOGLOBIN 13.3 GM/dL (10.7-15.3); MCH 27.5 pg (25.7-33.7); MCHC 33.3 g/dl (32.0-36.0); MEAN CELL VOLUME 82.8 fl (80-96); MEAN PLT VOLUME 9.6 fl (7.5-11.1); MONO % 7.4 % (3.8-10.2); PLATELET COUNT 330 10^3/uL (134-434); RBC 4.83 M/mm3 (3.60-5.2); RDW 15.2 % (11.6-15.6); WHITE BLOOD COUNT 9.3 K/mm3 (4.0-10.0)
[2022-01-19 10:15] LABS: CALCIUM 9.5 mg/dL (8.5-10.1)
[2022-01-19 10:16] LABS: ALBUMIN 3.6 g/dl (3.4-5.0); BLOOD UREA NITROGEN 21.3 mg/dL (7-18); MAGNESIUM 2.1 mg/dL (1.8-2.4)
[2022-01-19 10:18] LABS: CREATININE 0.8 mg/dL (0.55-1.3)
[2022-01-19 10:19] LABS: PHOSPHOROUS 4.7 mg/dL (2.5-4.9)
[2022-01-19] MEDS: HYDROCHLOROTHIAZIDE 25 MG TABLET (FP) PO SCH (10:42)
[2022-01-19] MEDS: LISINOPRIL 20 MG TABLET PO SCH (10:43)
[2022-01-19] MEDS: ENOXAPARIN NA (PORCINE) 40 MG/0.4 ML DISP.SYRIN SQ SCH (10:43)
[2022-01-19] MEDS: DEXAMETHASONE SOD PHOSPHATE 10 MG/1 ML VIAL IVPUSH SCH (10:43)
[2022-01-19] MEDS: FAMOTIDINE 20 MG TABLET PO SCH ×2 (10:43→21:27)
[2022-01-19] MEDS: BUDESONIDE/FORMETEROL FUMARATE 160/4.5 mcg INHALER IH SCH ×2 (10:54→21:29)
[2022-01-19] MEDS: ALBUTEROL SO4 HFA INHALER IH SCH ×4 (10:54→21:29)
[2022-01-19] MEDS: REMDESIVIR 100 MG in SODIUM CHLORIDE 250 ML IVPB SCH (17:03)
[2022-01-20 06:37] VITALS: PULSE 86
[2022-01-20] MEDS: LISINOPRIL 20 MG TABLET PO SCH (10:26)
[2022-01-20] MEDS: ENOXAPARIN NA (PORCINE) 40 MG/0.4 ML DISP.SYRIN SQ SCH (10:26)
[2022-01-20] MEDS: DEXAMETHASONE SOD PHOSPHATE 10 MG/1 ML VIAL IVPUSH SCH (10:26)
[2022-01-20] MEDS: HYDROCHLOROTHIAZIDE 25 MG TABLET (FP) PO SCH (10:26)
[2022-01-20] MEDS: FAMOTIDINE 20 MG TABLET PO SCH (10:26)
[2022-01-20] MEDS: BUDESONIDE/FORMETEROL FUMARATE 160/4.5 mcg INHALER IH SCH (10:31)
[2022-01-20] MEDS: ALBUTEROL SO4 HFA INHALER IH SCH ×2 (10:31→15:18)
[2022-01-20 15:18] VITALS: BP 106/60; TEMP 98.4
== END 2022-01-20 17:44 | disposition home or self-care (01) | DRG 137 ==
LOC: JER 09:09 → JERBED 09:45 → J8W 01-16 19:36
PROVIDERS: ADMIT Internal Medicine; ATTEND Internal Medicine
PROC: XW033E5 Introduction of Remdesivir Anti-infective into Peripheral Vein, Percutaneous Approach, New Technology Group 5 (ICD-10-PCS; principal; 2022-01-15)
DX: U07.1 COVID-19 (principal); J12.82 Pneumonia due to coronavirus disease 2019; J96.01 Acute respiratory failure with hypoxia; M06.9 Rheumatoid arthritis, unspecified; I10 Essential (primary) hypertension; J45.909 Unspecified asthma, uncomplicated; E66.9 Obesity, unspecified; Z68.36 Body mass index [BMI] 36.0-36.9, adult; J02.9 Acute pharyngitis, unspecified
CPT/HCPCS: 0241U-QW; 36415; 71045-TC-FY; 80053; 82728; 82803; 83036; 83735; 84100; 85025; 85379; 86140; 93005; 93010; 94761; 99285-25; C9399; J1100

== ENCOUNTER 2022-04-26 08:21 | Day surgery (SDC) | payer OTHER ==
[2022-04-26] MEDS ORDERED: diphenhydrAMINE HCL 25 MG CAPSULE (FP) PO ONE (09:00)
[2022-04-26] MEDS ORDERED: methylPREDNISolone NA SUCC 125 MG/2 ML VIAL IVPUSH ONE (09:00)
[2022-04-26] MEDS ORDERED: ACETAMINOPHEN 500 MG TABLET (FP) PO ONE (09:00)
[2022-04-26] MEDS ORDERED: RITUXIMAB-ABBS 1,000 MG in DEXTROSE 5%-WATER - 400 ML IVPB ONE (09:30)
[2022-04-26 15:54] VITALS: BP 118/64; PULSE 97; RESP 18; TEMP 98.3
== END 2022-04-26 14:30 | disposition home or self-care (01) ==
LOC: JONCCHEMO 08:21 → J7W 08:22 → JONCCHEMO 14:30
PROVIDERS: ATTEND Internal Medicine Rheumatology
DX: M06.9 Rheumatoid arthritis, unspecified (principal); J84.9 Interstitial pulmonary disease, unspecified
CPT/HCPCS: 96367; 96413; 96415; Q5115

== ENCOUNTER 2022-05-10 08:54 | Day surgery (SDC) | payer OTHER ==
[2022-05-10] MEDS ORDERED: METHYLPREDNISOLONE NA SUCC 100 MG in SODIUM CHLORIDE 50 ML IVPB ONE (09:15)
[2022-05-10] MEDS ORDERED: diphenhydrAMINE HCL 25 MG CAPSULE (FP) PO ONE (09:30)
[2022-05-10] MEDS ORDERED: ACETAMINOPHEN 500 MG TABLET (FP) PO ONE (09:30)
[2022-05-10] MEDS ORDERED: methylPREDNISolone NA SUCC 125 MG/2 ML VIAL IVPUSH ONE (09:30)
[2022-05-10] MEDS ORDERED: RITUXIMAB-ABBS 1,000 MG in DEXTROSE 5%-WATER - 400 ML IVPB ONE (10:00)
[2022-05-10 15:27] VITALS: BP 128/76; PULSE 91; RESP 20; TEMP 98.3
== END 2022-05-10 13:45 | disposition home or self-care (01) ==
LOC: JCHEMO 08:54 → J7W 08:58 → JCHEMO 13:45
PROVIDERS: ATTEND Internal Medicine Rheumatology
DX: M06.9 Rheumatoid arthritis, unspecified (principal); J84.9 Interstitial pulmonary disease, unspecified
CPT/HCPCS: 96375; 96413; 96415; Q5115

== ENCOUNTER 2022-07-06 09:29 | Emergency (ER) | payer OTHER ==
[2022-07-06 09:42] VITALS: BP 109/64; PULSE 105; RESP 18; TEMP 97.7; BMI 35.9
[2022-07-06] MEDS ORDERED: traMADol HCL 50 MG TABLET PO ONE (10:49)
[2022-07-06] MEDS ORDERED: traMADol HCL 50 MG TABLET ONE (11:14)
== END 2022-07-06 12:43 | disposition home or self-care (01) ==
LOC: JERFT 09:29
DX: M62.82 Rhabdomyolysis (principal)
CPT/HCPCS: 73562-TC-LT-FY; 73562-TC-RT-FY; 73610-TC-LT-FY; 73610-TC-RT-FY; 73630-TC-LT; 73630-TC-RT-FY; 99284-25

== ENCOUNTER 2022-07-24 19:14 | Inpatient (IN) | payer OTHER ==
[2022-07-24] MEDS ORDERED: ALBUTEROL SO4 2.5/IPRATROPIUM 0.5 INH SOL 3 ML VIAL.NEB. NEB ONE ×2 (20:48→20:50)
[2022-07-24] MEDS ORDERED: ALBUTEROL SO4 0.083% IH SOL 2.5 MG/3 ML VIAL.NEB. NEB ONE ×2 (20:48→23:01)
[2022-07-24] MEDS ORDERED: methylPREDNISolone NA SUCC 125 MG/2 ML VIAL IVPB ONE (20:50)
[2022-07-24] MEDS ORDERED: MAGNESIUM SULF 50% (8.12 MEQ/2 ML-1 GM VIAL) IVPB ONE (20:50)
[2022-07-24] MEDS ORDERED: ALBUTEROL SO4 0.083% IH SOL 2.5 MG/3 ML VIAL.NEB. NEB PRN (20:50)
[2022-07-24] MEDS ORDERED: methylPREDNISolone NA SUCC 125 MG/2 ML VIAL ONE (20:52)
[2022-07-24] MEDS ORDERED: MAGNESIUM SULFATE IN WATER 2 GM/50 ML IVPB IVPB ONE (20:53)
[2022-07-24] MEDS ORDERED: ACETAMINOPHEN 1000 MG/100 ML BAG IVPB ONE (20:56)
[2022-07-24 21:34] LABS: BASO % 0.9 % (0-2.0); EOS % 2.1 % (0-4.5); HEMATOCRIT 37.5 % (32.4-45.2); HEMOGLOBIN 11.8 GM/dL (10.7-15.3); LYMPH % 34.3 % (8-40); MCH 24.3 pg (25.7-33.7); MCHC 31.4 g/dl (32.0-36.0); MEAN CELL VOLUME 77.4 fl (80-96); MEAN PLT VOLUME 8.7 fl (7.5-11.1); NEUT % 53.7 % (42.8-82.8); PLATELET COUNT 318 10^3/uL (134-434); RBC 4.85 M/mm3 (3.60-5.2); RDW 16.3 % (11.6-15.6); WHITE BLOOD COUNT 8.9 K/mm3 (4.0-10.0)
[2022-07-24] MEDS ORDERED: ACETAMINOPHEN INJECTION 100 ML IVPB ONE (21:42)
[2022-07-24 21:56] LABS: BLOOD UREA NITROGEN 12.1 mg/dL (7-18); CALCIUM 8.5 mg/dL (8.5-10.1)
[2022-07-24 21:59] LABS: CREATININE 0.8 mg/dL (0.55-1.3)
[2022-07-24 22:01] LABS: BILIRUBIN,TOTAL 0.2 mg/dL (0.2-1); TOT PROT 7.3 g/dl (6.4-8.2)
[2022-07-24 22:04] LABS: N-TERMINAL BNP 127.6 pg/ml (5-125)
[2022-07-24 22:38] LABS: VENOUS BASE EXCESS 1.8 mmol/L (-2-2); VENOUS O2 SATURATION 74.4 % (70-80); VENOUS PCO2 50.6 mmHg (38-52); VENOUS PH 7.361 (7.310-7.410)
[2022-07-24 22:41] LABS: ARTERIAL BLOOD GAS pH 7.393 (7.350-7.450)
[2022-07-24 22:42] LABS: ALLENS TEST POSITIVE; ARTERIAL BLD GAS O2 SATURATION 99.2 % (95-98); ARTERIAL BLOOD GAS BASE EXCESS 0.8 mmol/L (-2-2); ARTERIAL BLOOD GAS PO2 182.3 mmHg (80-100)
[2022-07-25] MEDS ORDERED: ALBUTEROL SO4 0.083% IH SOL 2.5 MG/3 ML VIAL.NEB. NEB PRN (01:17)
[2022-07-25] MEDS ORDERED: ACETAMINOPHEN 1000 MG/100 ML BAG IVPB PRN (01:21)
[2022-07-25] MEDS ORDERED: predniSONE 2.5 MG TABLET PO SCH (06:00)
[2022-07-25] MEDS ORDERED: ALBUTEROL SO4 2.5/IPRATROPIUM 0.5 INH SOL 3 ML VIAL.NEB. NEB ONE ×4 (07:35→22:17)
[2022-07-25] MEDS: ALBUTEROL SO4 2.5/IPRATROPIUM 0.5 INH SOL 3 ML VIAL.NEB. NEB SCH ×4 (07:47→22:23)
[2022-07-25] MEDS ORDERED: predniSONE 5 MG TABLET (UD) PO SCH (07:49)
[2022-07-25] MEDS ORDERED: LISINOPRIL 20 MG TABLET ONE (08:44)
[2022-07-25] MEDS ORDERED: PANTOPRAZOLE 40 MG TABLET PO ONE (08:44)
[2022-07-25] MEDS ORDERED: HYDROCHLOROTHIAZIDE 25 MG TABLET (FP) ONE (08:44)
[2022-07-25] MEDS ORDERED: ENOXAPARIN NA (PORCINE) 40 MG/0.4 ML DISP.SYRIN SQ ONE (08:45)
[2022-07-25] MEDS ORDERED: OSELTAMIVIR PHOSPHATE 75 MG CAPSULE ONE ×2 (08:45→22:17)
[2022-07-25 08:59] LABS: BASO % 0.1 % (0-2.0); HEMATOCRIT 36.6 % (32.4-45.2); HEMOGLOBIN 11.6 GM/dL (10.7-15.3); LYMPH % 8.3 % (8-40); MCH 24.5 pg (25.7-33.7); MCHC 31.5 g/dl (32.0-36.0); MEAN CELL VOLUME 77.5 fl (80-96); MEAN PLT VOLUME 9.1 fl (7.5-11.1); NEUT % 89.6 % (42.8-82.8); PLATELET COUNT 298 10^3/uL (134-434); RBC 4.73 M/mm3 (3.60-5.2); RDW 16.6 % (11.6-15.6); WHITE BLOOD COUNT 4.3 K/mm3 (4.0-10.0)
[2022-07-25 09:22] LABS: CALCIUM 8.5 mg/dL (8.5-10.1)
[2022-07-25 09:23] LABS: MAGNESIUM 2.1 mg/dL (1.8-2.4)
[2022-07-25 09:24] LABS: BLOOD UREA NITROGEN 9.6 mg/dL (7-18)
[2022-07-25 09:26] LABS: CREATININE 0.6 mg/dL (0.55-1.3)
[2022-07-25] MEDS: HYDROCHLOROTHIAZIDE 25 MG TABLET (FP) PO SCH (09:26)
[2022-07-25] MEDS: ENOXAPARIN NA (PORCINE) 40 MG/0.4 ML DISP.SYRIN SQ SCH (09:26)
[2022-07-25] MEDS: LISINOPRIL 20 MG TABLET PO SCH (09:26)
[2022-07-25] MEDS: PANTOPRAZOLE 40 MG TABLET PO SCH (09:26)
[2022-07-25 09:27] LABS: PHOSPHOROUS 4.6 mg/dL (2.5-4.9)
[2022-07-25] MEDS: OSELTAMIVIR PHOSPHATE 75 MG CAPSULE PO SCH ×2 (09:27→22:23)
[2022-07-25 09:28] LABS: TOT PROT 7.2 g/dl (6.4-8.2)
[2022-07-25 09:29] LABS: BILIRUBIN,TOTAL 0.3 mg/dL (0.2-1)
[2022-07-25] MEDS ORDERED: OSELTAMIVIR PHOSPHATE 75 MG CAPSULE PO SCH (10:00)
[2022-07-25] MEDS ORDERED: PATIENT'S OWN MEDICATION (NON-FORMULARY) (Lisinopril/Hydrochlorothiazide [Lisinopril-Hctz PO SCH (10:00)
[2022-07-25] MEDS ORDERED: methylPREDNISolone NA SUCC 40 MG/1 ML VIAL ONE ×2 (10:22→18:05)
[2022-07-25] MEDS: methylPREDNISolone NA SUCC 40 MG/1 ML VIAL IVPUSH SCH ×2 (10:27→18:18)
[2022-07-25] MEDS: BUDESONIDE/FORMETEROL FUMARATE 160/4.5 mcg INHALER IH SCH ×2 (12:10→22:23)
[2022-07-25] MEDS ORDERED: ALBUTEROL SO4 0.083% IH SOL 2.5 MG/3 ML VIAL.NEB. NEB ONE (16:37)
[2022-07-25] MEDS ORDERED: MONTELUKAST NA 10 MG TABLET ONE (22:17)
[2022-07-25] MEDS: MONTELUKAST NA 10 MG TABLET PO SCH (22:23)
[2022-07-26] MEDS ORDERED: methylPREDNISolone NA SUCC 40 MG/1 ML VIAL ONE ×2 (05:16→08:41)
[2022-07-26] MEDS: methylPREDNISolone NA SUCC 40 MG/1 ML VIAL IVPUSH SCH ×2 (05:28→22:25)
[2022-07-26] MEDS ORDERED: ALBUTEROL SO4 2.5/IPRATROPIUM 0.5 INH SOL 3 ML VIAL.NEB. NEB ONE ×5 (07:42→19:42)
[2022-07-26] MEDS: ALBUTEROL SO4 2.5/IPRATROPIUM 0.5 INH SOL 3 ML VIAL.NEB. NEB SCH ×4 (08:13→20:01)
[2022-07-26] MEDS ORDERED: PANTOPRAZOLE 40 MG TABLET PO ONE (08:41)
[2022-07-26] MEDS ORDERED: ENOXAPARIN NA (PORCINE) 40 MG/0.4 ML DISP.SYRIN SQ ONE (08:41)
[2022-07-26] MEDS ORDERED: HYDROCHLOROTHIAZIDE 25 MG TABLET (FP) ONE (08:41)
[2022-07-26] MEDS ORDERED: LISINOPRIL 20 MG TABLET ONE (08:41)
[2022-07-26 08:47] LABS: HEMATOCRIT 37.4 % (32.4-45.2); HEMOGLOBIN 11.9 GM/dL (10.7-15.3); LYMPH % 8.4 % (8-40); MCH 24.6 pg (25.7-33.7); MCHC 31.9 g/dl (32.0-36.0); MEAN CELL VOLUME 77.2 fl (80-96); MEAN PLT VOLUME 8.9 fl (7.5-11.1); MONO % 7.2 % (3.8-10.2); NEUT % 84.4 % (42.8-82.8); PLATELET COUNT 313 10^3/uL (134-434); RBC 4.84 M/mm3 (3.60-5.2); RDW 15.9 % (11.6-15.6); WHITE BLOOD COUNT 7.6 K/mm3 (4.0-10.0)
[2022-07-26 08:54] LABS: BLOOD UREA NITROGEN 15.4 mg/dL (7-18); CALCIUM 8.9 mg/dL (8.5-10.1)
[2022-07-26] MEDS ORDERED: OSELTAMIVIR PHOSPHATE 75 MG CAPSULE ONE (08:55)
[2022-07-26 08:57] LABS: CREATININE 0.7 mg/dL (0.55-1.3)
[2022-07-26] MEDS ORDERED: POTASSIUM CHLORIDE TABS 20 MEQ TABLET.ER (FP) PO ONE ×2 (09:06→09:27)
[2022-07-26] MEDS: PANTOPRAZOLE 40 MG TABLET PO SCH (09:16)
[2022-07-26] MEDS: LISINOPRIL 20 MG TABLET PO SCH (09:16)
[2022-07-26] MEDS: ENOXAPARIN NA (PORCINE) 40 MG/0.4 ML DISP.SYRIN SQ SCH (09:16)
[2022-07-26] MEDS: HYDROCHLOROTHIAZIDE 25 MG TABLET (FP) PO SCH (09:16)
[2022-07-26] MEDS: OSELTAMIVIR PHOSPHATE 75 MG CAPSULE PO SCH ×2 (09:16→22:25)
[2022-07-26] MEDS ORDERED: POTASSIUM CHLORIDE TABS 20 MEQ TABLET.ER (FP) PO SCH (10:00)
[2022-07-26] MEDS: BUDESONIDE/FORMETEROL FUMARATE 160/4.5 mcg INHALER IH SCH ×2 (11:27→22:30)
[2022-07-26] MEDS: MONTELUKAST NA 10 MG TABLET PO SCH (22:26)
[2022-07-27 01:20] VITALS: BMI 34.4
[2022-07-27] MEDS: ALBUTEROL SO4 2.5/IPRATROPIUM 0.5 INH SOL 3 ML VIAL.NEB. NEB SCH ×4 (07:37→20:05)
[2022-07-27] MEDS: OSELTAMIVIR PHOSPHATE 75 MG CAPSULE PO SCH ×2 (09:28→22:54)
[2022-07-27] MEDS: PANTOPRAZOLE 40 MG TABLET PO SCH (09:28)
[2022-07-27] MEDS: LISINOPRIL 20 MG TABLET PO SCH (09:29)
[2022-07-27] MEDS: BUDESONIDE/FORMETEROL FUMARATE 160/4.5 mcg INHALER IH SCH ×2 (09:29→22:54)
[2022-07-27] MEDS: methylPREDNISolone NA SUCC 40 MG/1 ML VIAL IVPUSH SCH ×2 (09:29→22:51)
[2022-07-27] MEDS: ENOXAPARIN NA (PORCINE) 40 MG/0.4 ML DISP.SYRIN SQ SCH (09:29)
[2022-07-27] MEDS: HYDROCHLOROTHIAZIDE 25 MG TABLET (FP) PO SCH (09:30)
[2022-07-27] MEDS: MONTELUKAST NA 10 MG TABLET PO SCH (22:51)
[2022-07-28] MEDS: ALBUTEROL SO4 2.5/IPRATROPIUM 0.5 INH SOL 3 ML VIAL.NEB. NEB SCH ×3 (08:27→15:06)
[2022-07-28] MEDS ORDERED: POTASSIUM CHLORIDE TABS 20 MEQ TABLET.ER (FP) PO ONE (08:45)
[2022-07-28] MEDS: OSELTAMIVIR PHOSPHATE 75 MG CAPSULE PO SCH (10:07)
[2022-07-28] MEDS: methylPREDNISolone NA SUCC 40 MG/1 ML VIAL IVPUSH SCH (10:08)
[2022-07-28] MEDS: ENOXAPARIN NA (PORCINE) 40 MG/0.4 ML DISP.SYRIN SQ SCH (10:08)
[2022-07-28] MEDS: HYDROCHLOROTHIAZIDE 25 MG TABLET (FP) PO SCH (10:08)
[2022-07-28] MEDS: LISINOPRIL 20 MG TABLET PO SCH (10:08)
[2022-07-28] MEDS: PANTOPRAZOLE 40 MG TABLET PO SCH (10:08)
[2022-07-28] MEDS: BUDESONIDE/FORMETEROL FUMARATE 160/4.5 mcg INHALER IH SCH (10:09)
[2022-07-28 16:56] VITALS: BP 126/78; PULSE 78; RESP 20; TEMP 98
== END 2022-07-28 19:58 | disposition home or self-care (01) | DRG 133 ==
LOC: JER 19:14 → JERBED 23:04 → J4W 07-26 21:20
PROVIDERS: ADMIT Family Medicine; ATTEND Nurse Practitioner Family
DX: J96.01 Acute respiratory failure with hypoxia (principal); M06.9 Rheumatoid arthritis, unspecified; J45.909 Unspecified asthma, uncomplicated; I10 Essential (primary) hypertension; J84.9 Interstitial pulmonary disease, unspecified; J10.1 Influenza due to other identified influenza virus with other respiratory manifestations
CPT/HCPCS: 0241U-QW; 36415; 36600; 71045-TC-FY; 71275-TC; 80048; 80053; 80061; 82803; 83036; 83605; 83735; 83880; 84100; 84484; 85025; 93005; 93010; 94640; 94761; 99285-25

== ENCOUNTER 2022-12-02 14:53 | Observation (INO) | payer OTHER ==
[2022-12-02 14:59] VITALS: BP 110/71; PULSE 113; RESP 18; TEMP 98; BMI 32.4
[2022-12-02] MEDS ORDERED: SODIUM CHLORIDE 0.9% 500 ML INFUS.BAG IV ONE (16:45)
[2022-12-02 16:54] LABS: HEMATOCRIT 41.5 % (32.4-45.2); HEMOGLOBIN 13.4 GM/dL (10.7-15.3); MCH 24.2 pg (25.7-33.7); MCHC 32.4 g/dl (32.0-36.0); MEAN CELL VOLUME 74.6 fl (80-96); MEAN PLT VOLUME 8.6 fl (7.5-11.1); PLATELET COUNT 266 10^3/uL (134-434); RBC 5.56 M/mm3 (3.60-5.2)
[2022-12-02 17:16] LABS: CALCIUM 9.3 mg/dL (8.5-10.1)
[2022-12-02 17:17] LABS: ALBUMIN 3.5 g/dl (3.4-5.0)
[2022-12-02 17:20] LABS: CREATININE 0.9 mg/dL (0.55-1.3); PHOSPHOROUS 5.4 mg/dL (2.5-4.9)
[2022-12-02 17:22] LABS: BILIRUBIN,TOTAL 0.2 mg/dL (0.2-1); TOT PROT 8.7 g/dl (6.4-8.2)
[2022-12-02] MEDS ORDERED: VANCOMYCIN 1 GM in D5W (PRE-DOCKED) 1,000 MG/250 ML IVPB ONE (19:01)
[2022-12-02] MEDS ORDERED: PIPERACILLIN/TAZOB 4.5 GM 4.5 GM in DEXTROSE 5%-WATER 100 ML IVPB ONE (19:01)
[2022-12-02 19:20] LABS: N-TERMINAL BNP 17.8 pg/ml (5-125)
[2022-12-02] MEDS ORDERED: PIPERACILLIN/TAZOB 4.5 GM 4.5 GM/100 ML BAG IVPB ONE (19:37)
== END 2022-12-02 21:40 | disposition left against medical advice (07) ==
LOC: JER 14:53 → JERBED 18:37
PROVIDERS: ADMIT Internal Medicine; ATTEND Internal Medicine
PROC: 3E03329 Introduction of Other Anti-infective into Peripheral Vein, Percutaneous Approach (ICD-10-PCS; principal; 2022-12-02)
PROC: 3E0337Z Introduction of Electrolytic and Water Balance Substance into Peripheral Vein, Percutaneous Approach (ICD-10-PCS; 2022-12-02)
DX: I10 Essential (primary) hypertension (principal); M06.9 Rheumatoid arthritis, unspecified; J45.909 Unspecified asthma, uncomplicated; Z87.891 Personal history of nicotine dependence
CPT/HCPCS: 0241U-QW; 36415; 71046-TC-FY; 71250-TC; 80053; 83735; 83880; 84100; 84484; 85027; 93005; 93010; 96365; 96375; 99285-25; G0378

== ENCOUNTER 2023-09-23 17:19 | Inpatient (IN) | payer OTHER ==
[2023-09-23] MEDS ORDERED: ALBUTEROL SO4 2.5/IPRATROPIUM 0.5 INH SOL 3 ML VIAL.NEB. NEB ONE ×2 (17:43→17:52)
[2023-09-23] MEDS ORDERED: methylPREDNISolone NA SUCC 125 MG/2 ML VIAL IVPB ONE (17:44)
[2023-09-23] MEDS ORDERED: methylPREDNISolone NA SUCC 125 MG/2 ML VIAL ONE (17:52)
[2023-09-23 18:42] LABS: BASO % 0.3 % (0-2.0); EOS % 1.7 % (0-4.5); HEMOGLOBIN 14.4 GM/dL (10.7-15.3); LYMPH % 21.6 % (8-40); MCH 29.7 pg (25.7-33.7); MCHC 32.7 g/dl (32.0-36.0); MEAN PLT VOLUME 9.8 fl (7.5-11.1); MONO % 8.5 % (3.8-10.2); NEUT % 67.9 % (42.8-82.8); PLATELET COUNT 249 10^3/uL (134-434); RBC 4.84 M/mm3 (3.60-5.2); RDW 14.3 % (11.6-15.6); WHITE BLOOD COUNT 16.3 K/mm3 (4.0-10.0)
[2023-09-23] MEDS ORDERED: AZITHROMYCIN IVPB 500 MG in DEXTROSE 5%-WATER - 250 ML IVPB ONE (18:47)
[2023-09-23 18:49] LABS: INR 1.03 (0.83-1.09); PROTHROMBIN TIME (PATIENT) 11.9 SEC (9.7-13.0)
[2023-09-23 18:52] LABS: ACTIVATED PTT 29.8 SECONDS (25.2-36.5)
[2023-09-23] MEDS ORDERED: CEFTRIAXONE 1 GM/50 ML BAG ONE (18:58)
[2023-09-23] MEDS ORDERED: AZITHROMYCIN IVPB 500 MG/250 ML BAG IVPB ONE (18:58)
[2023-09-23 19:10] LABS: POTASSIUM 3.3 mmol/L (3.5-5.1)
[2023-09-23 19:13] LABS: CALCIUM 9.4 mg/dL (8.5-10.1)
[2023-09-23 19:14] LABS: BLOOD UREA NITROGEN 12.7 mg/dL (7-18); MAGNESIUM 1.8 mg/dL (1.8-2.4)
[2023-09-23 19:17] LABS: CREATININE 1.3 mg/dL (0.55-1.3)
[2023-09-23 19:18] LABS: BILIRUBIN,TOTAL 0.3 mg/dL (0.2-1); TOT PROT 7.9 g/dl (6.4-8.2)
[2023-09-23] MEDS ORDERED: POTASSIUM CHLORIDE ORAL LIQUID 20 MEQ/15 ML PO ONE (19:41)
[2023-09-23] MEDS ORDERED: SODIUM CHLORIDE 0.9% 500 ML INFUS.BAG IV ONE (19:44)
[2023-09-23] MEDS ORDERED: POTASSIUM CHLORIDE ORAL LIQUID 20 MEQ/15 ML ONE (20:37)
[2023-09-23] MEDS ORDERED: MAGNESIUM SULF 50% (8.12 MEQ/2 ML-1 GM VIAL) IVPB ONE (21:10)
[2023-09-23] MEDS ORDERED: BUDESONIDE/FORMETEROL FUMARATE 80/4.5 mcg INHALER IH SCH (22:00)
[2023-09-23] MEDS ORDERED: HEPARIN NA (PORCINE) 5,000 UNITS/ML 1ML VIAL SQ SCH (22:00)
[2023-09-23 22:10] LABS: PH,URINE 5.5 (5.0-8.0); URINE APPEARANCE CLEAR; URINE BILIRUBIN NEGATIVE (NEGATIVE); URINE COLOR YELLOW; URINE GLUCOSE (UA) NEGATIVE (NEGATIVE); URINE KETONE NEGATIVE (NEGATIVE); URINE LEUK ESTERASE NEGATIVE (NEGATIVE); URINE NITRITE NEGATIVE (NEGATIVE); URINE PROTEIN NEGATIVE (NEGATIVE); URINE UROBILINOGEN 0.2 mg/dL (0.2-1.0)
[2023-09-23] MEDS ORDERED: MAGNESIUM SULFATE IN WATER 2 GM/50 ML IVPB IVPB ONE (22:35)
[2023-09-23] MEDS ORDERED: KCL 10 MEQ IVPB 10 MEQ/100 ML INFUS.BAG IVPB ONE (23:52)
[2023-09-24] MEDS ORDERED: methylPREDNISolone NA SUCC 40 MG/1 ML VIAL ONE ×2 (00:35→16:07)
[2023-09-24] MEDS ORDERED: MONTELUKAST NA 10 MG TABLET ONE (00:35)
[2023-09-24] MEDS: MONTELUKAST NA 10 MG TABLET PO SCH ×2 (00:43→23:08)
[2023-09-24] MEDS: BUDESONIDE/FORMETEROL FUMARATE 80/4.5 mcg INHALER IH SCH ×2 (00:43→09:52)
[2023-09-24] MEDS: KCL 10 MEQ IVPB 10 MEQ/100 ML INFUS.BAG IVPB SCH ×3 (00:43→04:25)
[2023-09-24] MEDS: methylPREDNISolone NA SUCC 40 MG/1 ML VIAL IVPUSH SCH ×3 (01:54→17:12)
[2023-09-24] MEDS ORDERED: KCL 10 MEQ IVPB 10 MEQ/100 ML INFUS.BAG IVPB ONE ×2 (02:40→04:19)
[2023-09-24 06:27] LABS: HEMATOCRIT 40.7 % (32.4-45.2); HEMOGLOBIN 13.5 GM/dL (10.7-15.3); MCH 30.4 pg (25.7-33.7); MCHC 33.1 g/dl (32.0-36.0); MEAN CELL VOLUME 91.8 fl (80-96); PLATELET COUNT 231 10^3/uL (134-434); RBC 4.44 M/mm3 (3.60-5.2); RDW 14.3 % (11.6-15.6); WHITE BLOOD COUNT 9.8 K/mm3 (4.0-10.0)
[2023-09-24 06:30] LABS: POTASSIUM 4.1 mmol/L (3.5-5.1)
[2023-09-24 06:32] LABS: ALBUMIN 3.2 g/dl (3.4-5.0); BLOOD UREA NITROGEN 10.7 mg/dL (7-18); CALCIUM 9.1 mg/dL (8.5-10.1); MAGNESIUM 2.2 mg/dL (1.8-2.4)
[2023-09-24 06:35] LABS: PHOSPHOROUS 3.2 mg/dL (2.5-4.9)
[2023-09-24 06:36] LABS: CREATININE 0.9 mg/dL (0.55-1.3)
[2023-09-24 06:37] LABS: BILIRUBIN,TOTAL 0.2 mg/dL (0.2-1); TOT PROT 7.1 g/dl (6.4-8.2)
[2023-09-24] MEDS ORDERED: PIPERACILLIN/TAZOB 3.375 GM 3.375 GM in DEXTROSE 5%-WATER - 50 ML IVPB SCH ×2 (07:30→10:00)
[2023-09-24] MEDS: ALBUTEROL SO4 2.5/IPRATROPIUM 0.5 INH SOL 3 ML VIAL.NEB. NEB SCH ×4 (09:00→20:16)
[2023-09-24 09:09] LABS: ERYTHROCYTE SEDIMENTATION RATE 33 mm/hr (0-30)
[2023-09-24] MEDS ORDERED: ALBUTEROL SO4 2.5/IPRATROPIUM 0.5 INH SOL 3 ML VIAL.NEB. NEB ONE ×3 (09:25→11:49)
[2023-09-24] MEDS: ENOXAPARIN NA (PORCINE) 40 MG/0.4 ML DISP.SYRIN SQ SCH (09:40)
[2023-09-24 09:50] LABS: ANISOCYTOSIS 0; HELMET CELLS 0; HOWELL-JOLLY BODIES 0; MACROCYTOSIS 0; OVALOCYTE 0; ROULEAU 0; SICKELED CELLS 0; TARGET CELLS 0; TEAR DROP CELLS 0; TOXIC GRANULATION 0
[2023-09-24] MEDS ORDERED: PIPERACILLIN/TAZOB 3.375 GM 3.375 GM/50 ML BAG IVPB ONE (09:55)
[2023-09-24] MEDS ORDERED: PATIENT'S OWN MEDICATION (NON-FORMULARY) (Lisinopril/Hydrochlorothiazide [Lisinopril-Hctz PO SCH (10:00)
[2023-09-24] MEDS ORDERED: AZITHROMYCIN IVPB 250 MG in DEXTROSE 5%-WATER - 250 ML IVPB SCH (10:00)
[2023-09-24] MEDS ORDERED: CEFTRIAXONE 1 GM in DEXTROSE 5%-WATER - 50 ML IVPB SCH (10:00)
[2023-09-24] MEDS ORDERED: HYDROCHLOROTHIAZIDE 25 MG TABLET (FP) PO SCH (11:00)
[2023-09-24] MEDS ORDERED: LISINOPRIL 20 MG TABLET PO SCH (11:00)
[2023-09-24 11:37] LABS: ARTERIAL BLD GAS O2 SATURATION 89.8 % (95-98); ARTERIAL BLOOD GAS BASE EXCESS 1.4 mmol/L (-2-2); ARTERIAL BLOOD GAS PO2 57.5 mmHg (80-100); ARTERIAL BLOOD GAS pH 7.399 (7.350-7.450)
[2023-09-24] MEDS ORDERED: HYDROCHLOROTHIAZIDE 25 MG TABLET (FP) ONE (11:49)
[2023-09-24] MEDS ORDERED: LISINOPRIL 20 MG TABLET ONE (11:49)
[2023-09-24] MEDS ORDERED: PIPERACILLIN/TAZOB 4.5 GM 4.5 GM/100 ML BAG IVPB ONE (16:07)
[2023-09-24] MEDS: PIPERACILLIN/TAZOB 4.5 GM 4.5 GM in DEXTROSE 5%-WATER 100 ML IVPB SCH (17:12)
[2023-09-24] MEDS ORDERED: PIPERACILLIN/TAZOB 4.5 GM 4.5 GM in DEXTROSE 5%-WATER 100 ML IVPB SCH (18:00)
[2023-09-24 20:25] VITALS: BMI 33.2
[2023-09-24] MEDS ORDERED: guaiFENesin 600 MG TABLET.ER (FP) PO SCH (22:00)
[2023-09-25] MEDS: BUDESONIDE/FORMETEROL FUMARATE 80/4.5 mcg INHALER IH SCH ×3 (01:40→21:14)
[2023-09-25] MEDS: PIPERACILLIN/TAZOB 4.5 GM 4.5 GM in DEXTROSE 5%-WATER 100 ML IVPB SCH ×3 (02:47→18:27)
[2023-09-25] MEDS: methylPREDNISolone NA SUCC 40 MG/1 ML VIAL IVPUSH SCH ×3 (02:47→18:27)
[2023-09-25] MEDS: ALBUTEROL SO4 2.5/IPRATROPIUM 0.5 INH SOL 3 ML VIAL.NEB. NEB SCH ×4 (07:20→20:52)
[2023-09-25] MEDS ORDERED: guaiFENesin 200 MG/10 ML 10 ML UNIT-DOSE CUPS PO PRN (08:39)
[2023-09-25] MEDS: ENOXAPARIN NA (PORCINE) 40 MG/0.4 ML DISP.SYRIN SQ SCH (09:24)
[2023-09-25 10:29] LABS: HEMATOCRIT 42.5 % (32.4-45.2); HEMOGLOBIN 13.6 GM/dL (10.7-15.3); MCH 29.8 pg (25.7-33.7); MCHC 32.1 g/dl (32.0-36.0); MEAN CELL VOLUME 92.8 fl (80-96); MEAN PLT VOLUME 10.4 fl (7.5-11.1); PLATELET COUNT 286 10^3/uL (134-434); RBC 4.59 M/mm3 (3.60-5.2); RDW 14.3 % (11.6-15.6); WHITE BLOOD COUNT 12.2 K/mm3 (4.0-10.0)
[2023-09-25 10:48] LABS: POTASSIUM 4.6 mmol/L (3.5-5.1)
[2023-09-25 10:54] LABS: CALCIUM 9.5 mg/dL (8.5-10.1)
[2023-09-25 10:55] LABS: ALBUMIN 3.6 g/dl (3.4-5.0); BLOOD UREA NITROGEN 15.4 mg/dL (7-18)
[2023-09-25 10:59] LABS: BILIRUBIN,TOTAL 0.4 mg/dL (0.2-1); TOT PROT 7.5 g/dl (6.4-8.2)
[2023-09-25 11:03] LABS: N-TERMINAL BNP 420.5 pg/ml (5-125)
[2023-09-25] MEDS ORDERED: REMDESIVIR 200 MG in SODIUM CHLORIDE 250 ML IVPB ONE (13:00)
[2023-09-25] MEDS: INSULIN ASPART SLIDING SCALE (NOVOLOG) 1 VIAL SQ SCH ×2 (16:56→21:12)
[2023-09-25 20:25] LABS: HIV INTERPRETATION PRESUMPTIVE POSITIVE (NEGATIVE)
[2023-09-25] MEDS: MONTELUKAST NA 10 MG TABLET PO SCH (21:11)
[2023-09-26] MEDS: PIPERACILLIN/TAZOB 4.5 GM 4.5 GM in DEXTROSE 5%-WATER 100 ML IVPB SCH ×3 (01:35→17:27)
[2023-09-26] MEDS: methylPREDNISolone NA SUCC 40 MG/1 ML VIAL IVPUSH SCH ×3 (01:35→17:27)
[2023-09-26] MEDS: INSULIN ASPART SLIDING SCALE (NOVOLOG) 1 VIAL SQ SCH ×4 (06:59→22:34)
[2023-09-26] MEDS: ALBUTEROL SO4 2.5/IPRATROPIUM 0.5 INH SOL 3 ML VIAL.NEB. NEB SCH ×4 (07:20→20:30)
[2023-09-26] MEDS: ENOXAPARIN NA (PORCINE) 40 MG/0.4 ML DISP.SYRIN SQ SCH (10:15)
[2023-09-26] MEDS: BUDESONIDE/FORMETEROL FUMARATE 80/4.5 mcg INHALER IH SCH ×2 (10:16→22:46)
[2023-09-26 10:52] LABS: HEMATOCRIT 38.6 % (32.4-45.2); HEMOGLOBIN 12.9 GM/dL (10.7-15.3); MCH 30.5 pg (25.7-33.7); MCHC 33.6 g/dl (32.0-36.0); MEAN PLT VOLUME 10.1 fl (7.5-11.1); PLATELET COUNT 237 10^3/uL (134-434); RBC 4.24 M/mm3 (3.60-5.2); RDW 14.3 % (11.6-15.6); WHITE BLOOD COUNT 12.1 K/mm3 (4.0-10.0)
[2023-09-26 10:53] LABS: POTASSIUM 4.1 mmol/L (3.5-5.1)
[2023-09-26 10:55] LABS: ALBUMIN 3.3 g/dl (3.4-5.0); BLOOD UREA NITROGEN 18.2 mg/dL (7-18)
[2023-09-26 10:58] LABS: CREATININE 0.8 mg/dL (0.55-1.3)
[2023-09-26 11:00] LABS: BILIRUBIN,TOTAL 0.2 mg/dL (0.2-1); TOT PROT 6.6 g/dl (6.4-8.2)
[2023-09-26] MEDS: REMDESIVIR 100 MG in SODIUM CHLORIDE 250 ML IVPB SCH (12:05)
[2023-09-26 12:53] LABS: ANISOCYTOSIS 0; HELMET CELLS 0; HOWELL-JOLLY BODIES 0; MACROCYTOSIS 0; OVALOCYTE 0; ROULEAU 0; SICKELED CELLS 0; TARGET CELLS 0; TEAR DROP CELLS 0; TOXIC GRANULATION 0
[2023-09-26] MEDS: MONTELUKAST NA 10 MG TABLET PO SCH (22:35)
[2023-09-27] MEDS: methylPREDNISolone NA SUCC 40 MG/1 ML VIAL IVPUSH SCH ×2 (02:29→10:07)
[2023-09-27] MEDS: PIPERACILLIN/TAZOB 4.5 GM 4.5 GM in DEXTROSE 5%-WATER 100 ML IVPB SCH ×3 (02:29→17:08)
[2023-09-27] MEDS: INSULIN ASPART SLIDING SCALE (NOVOLOG) 1 VIAL SQ SCH ×4 (06:05→21:42)
[2023-09-27] MEDS: ALBUTEROL SO4 2.5/IPRATROPIUM 0.5 INH SOL 3 ML VIAL.NEB. NEB SCH ×4 (07:45→19:40)
[2023-09-27 09:27] LABS: BASO % 0.2 % (0-2.0); EOS % 0.2 % (0-4.5); HEMATOCRIT 39.4 % (32.4-45.2); LYMPH % 12.3 % (8-40); MCH 30.3 pg (25.7-33.7); MEAN CELL VOLUME 91.8 fl (80-96); MEAN PLT VOLUME 9.8 fl (7.5-11.1); MONO % 7.9 % (3.8-10.2); NEUT % 79.4 % (42.8-82.8); PLATELET COUNT 223 10^3/uL (134-434); RBC 4.29 M/mm3 (3.60-5.2); RDW 14.3 % (11.6-15.6); WHITE BLOOD COUNT 12.7 K/mm3 (4.0-10.0)
[2023-09-27 09:40] LABS: POTASSIUM 4.3 mmol/L (3.5-5.1)
[2023-09-27 10:02] LABS: CALCIUM 8.9 mg/dL (8.5-10.1)
[2023-09-27 10:03] LABS: ALBUMIN 3.3 g/dl (3.4-5.0)
[2023-09-27 10:04] LABS: BLOOD UREA NITROGEN 17.8 mg/dL (7-18)
[2023-09-27 10:06] LABS: CREATININE 0.7 mg/dL (0.55-1.3)
[2023-09-27 10:07] LABS: TOT PROT 6.8 g/dl (6.4-8.2)
[2023-09-27] MEDS: ENOXAPARIN NA (PORCINE) 40 MG/0.4 ML DISP.SYRIN SQ SCH (10:07)
[2023-09-27 10:08] LABS: BILIRUBIN,TOTAL 0.3 mg/dL (0.2-1)
[2023-09-27] MEDS: BUDESONIDE/FORMETEROL FUMARATE 80/4.5 mcg INHALER IH SCH ×2 (10:19→21:40)
[2023-09-27] MEDS: REMDESIVIR 100 MG in SODIUM CHLORIDE 250 ML IVPB SCH (13:29)
[2023-09-27] MEDS: MONTELUKAST NA 10 MG TABLET PO SCH (21:38)
[2023-09-28] MEDS: PIPERACILLIN/TAZOB 4.5 GM 4.5 GM in DEXTROSE 5%-WATER 100 ML IVPB SCH ×3 (01:28→17:23)
[2023-09-28] MEDS ORDERED: methylPREDNISolone NA SUCC 40 MG/1 ML VIAL IVPUSH SCH (02:00)
[2023-09-28] MEDS: INSULIN ASPART SLIDING SCALE (NOVOLOG) 1 VIAL SQ SCH ×3 (06:16→17:23)
[2023-09-28] MEDS: ALBUTEROL SO4 2.5/IPRATROPIUM 0.5 INH SOL 3 ML VIAL.NEB. NEB SCH ×3 (07:55→15:18)
[2023-09-28] MEDS ORDERED: predniSONE 20 MG TABLET (UD) PO SCH (10:00)
[2023-09-28] MEDS: ENOXAPARIN NA (PORCINE) 40 MG/0.4 ML DISP.SYRIN SQ SCH (10:28)
[2023-09-28] MEDS: BUDESONIDE/FORMETEROL FUMARATE 80/4.5 mcg INHALER IH SCH (10:29)
[2023-09-28 11:02] LABS: HEMATOCRIT 40.2 % (32.4-45.2); HEMOGLOBIN 13.4 GM/dL (10.7-15.3); MCH 30.5 pg (25.7-33.7); MCHC 33.3 g/dl (32.0-36.0); MEAN CELL VOLUME 91.4 fl (80-96); MEAN PLT VOLUME 9.3 fl (7.5-11.1); PLATELET COUNT 244 10^3/uL (134-434); RBC 4.39 M/mm3 (3.60-5.2); RDW 14.2 % (11.6-15.6); WHITE BLOOD COUNT 16.4 K/mm3 (4.0-10.0)
[2023-09-28 11:23] LABS: POTASSIUM 4.3 mmol/L (3.5-5.1)
[2023-09-28 11:27] LABS: BLOOD UREA NITROGEN 20.6 mg/dL (7-18)
[2023-09-28 11:28] LABS: CALCIUM 9.1 mg/dL (8.5-10.1)
[2023-09-28 11:29] LABS: ALBUMIN 3.3 g/dl (3.4-5.0); MAGNESIUM 2.3 mg/dL (1.8-2.4)
[2023-09-28 11:31] LABS: PHOSPHOROUS 4.7 mg/dL (2.5-4.9)
[2023-09-28 11:32] LABS: CREATININE 0.8 mg/dL (0.55-1.3)
[2023-09-28 11:33] LABS: BILIRUBIN,TOTAL 0.3 mg/dL (0.2-1); TOT PROT 6.9 g/dl (6.4-8.2)
[2023-09-28] MEDS: REMDESIVIR 100 MG in SODIUM CHLORIDE 250 ML IVPB SCH (12:32)
[2023-09-28 14:10] VITALS: BP 139/78; PULSE 97; RESP 18; TEMP 98.3
== END 2023-09-28 18:45 | disposition home or self-care (01) | DRG 137 ==
LOC: JER 17:19 → JERBED 18:48 → UNDOADMIN 18:48 → JERBED 09-24 00:06 → J6S 09-24 19:47
PROVIDERS: ADMIT Internal Medicine; ATTEND Internal Medicine
PROC: XW033E5 Introduction of Remdesivir Anti-infective into Peripheral Vein, Percutaneous Approach, New Technology Group 5 (ICD-10-PCS; principal; 2023-09-25)
DX: U07.1 COVID-19 (principal); J96.01 Acute respiratory failure with hypoxia; E11.65 Type 2 diabetes mellitus with hyperglycemia; I10 Essential (primary) hypertension; M06.9 Rheumatoid arthritis, unspecified; J45.909 Unspecified asthma, uncomplicated; E87.6 Hypokalemia; K76.0 Fatty (change of) liver, not elsewhere classified; J18.9 Pneumonia, unspecified organism; K12.1 Other forms of stomatitis
CPT/HCPCS: 0241U-QW; 36415; 36600; 71045-TC-FY; 71250-TC; 80053; 80061; 81003; 82803; 82962; 83036; 83615; 83735; 83880; 84100; 84439; 84443; 84484; 84703; 85025; 85027; 85610; 85651; 85730; 86140; 86359; 86360; 86480; 87040; 87070; 87081; 87205; 87305; 87389; 87449; 87536; 87899; 93005; 93010; 93306-TC; 94640; 94761; 99285-25; J0248